=== PATIENT | male | born 1965 | race Caucasian/White ===

== ENCOUNTER → 2024-07-27 11:45 | Outpatient (REF) | payer OTHER, SELFPAY | LOC: DHSLP 11:45 | PROVIDERS: ATTENDING PHYSICIAN Internal Medicine | DX: G47.33 Obstructive sleep apnea (adult) (pediatric) (principal) | CPT/HCPCS: 95811 ==

== ENCOUNTER → 2025-03-09 14:10 | Outpatient (REF) | payer OTHER, SELFPAY | LOC: HWRAD 14:10 | PROVIDERS: ATTENDING PHYSICIAN Internal Medicine Rheumatology | DX: M13.0 Polyarthritis, unspecified (principal); R06.02 Shortness of breath | CPT/HCPCS: 71046; 73130; 73560; 73565 ==